=== PATIENT | male | born 1985 | race Caucasian/White ===

== ENCOUNTER 2017-02-10 07:34 | Emergency (ER) | payer OTHER ==
[~2017-02-10] VITALS: Ht 180.3 cm; Wt 97.7 kg
[2017-02-10] MEDS ORDERED: CELE10TA PO (07:40)
[2017-02-10] MEDS ORDERED: PERCOCET 5MG/325MG TAB PO ONE (08:00)
[2017-02-10] MEDS ORDERED: KETOROLAC 60 MG/2 ML VIAL (J1885) IM ONE (09:00)
[2017-02-10] MEDS ORDERED: IBUP-1022 PO (09:38)
[2017-02-10] MEDS ORDERED: PERC5TAB12 PO (09:39)
[2017-02-10 10:01] VITALS: BP 144/86
--- NOTE | 2017-02-22 10:13 | REP ---
RIGHT SHOULDER, THREE VIEWS: Three views left shoulder performed. There is no evidence of acute fracture. There is elevation of the distal end of the clavicle with respect to the acromion. IMPRESSION: AC joint separation with mild elevation of the distal end of the clavicle with respect to the acromion. Signed by Akbar Kincaid MD 02/22/2017 04:49 P
== END 2017-02-10 10:03 | disposition home or self-care (01) ==
LOC: M ED 07:34
DX: S43.101A Unspecified dislocation of right acromioclavicular joint, initial encounter (principal); S06.0X0A Concussion without loss of consciousness, initial encounter; F41.9 Anxiety disorder, unspecified; W01.0XXA Fall on same level from slipping, tripping and stumbling without subsequent striking against object, initial encounter; Y92.9 Unspecified place or not applicable; Y99.9 Unspecified external cause status; Y93.9 Activity, unspecified
CPT/HCPCS: 73030; 96372; 99283; J1885

== ENCOUNTER 2023-02-08 14:32 | Emergency (ER) | payer OTHER ==
[~2023-02-08] VITALS: Ht 182.9 cm; Wt 97.9 kg
[~2023-02-08 14:32] MED LIST: CELE10TA PO; IBUP-1022 PO; PERC5TAB12 PO
[2023-02-08] MEDS ORDERED: CEPH500C (14:50)
[2023-02-08] MEDS ORDERED: BUPR150T12 (14:50)
[2023-02-08 15:39] LABS: BASO % 0.3 % (0.0-1.0); EOS # 0.1 10^3/uL (0.0-0.5); EOS % 1.2 % (0.0-3.0); HEMATOCRIT 46.6 % (42.0-52.0); HEMOGLOBIN 15.5 g/dl (13.5-17.5); LYMPH # 1.7 10^3/uL (1.5-5.0); LYMPH % 16.6 % (24.0-44.0); MEAN CORPUSCULAR HEMOGLOBIN 28.8 pg (27.0-33.0); MEAN CORPUSCULAR HGB CONC 33.3 g/dl (32.0-36.5); MEAN CORPUSCULAR VOLUME 86.6 fl (80.0-96.0); MONO # 0.6 10^3/uL (0.0-0.8); MONO % 5.9 % (2.0-8.0); NEUTROPHILS # 7.8 10^3/uL (1.5-8.5); NEUTROPHILS % 75.7 % (36.0-66.0); PLATELET COUNT, AUTOMATED 289 10^3/uL (150-450); RED BLOOD COUNT 5.38 10^6/uL (4.30-6.10); WHITE BLOOD COUNT 10.3 10^3/uL (4.0-10.0)
[2023-02-08 15:52] LABS: ERYTHROCYTE SEDIMENTATION RATE 12 mm/hr (0-15)
[2023-02-08 16:07] LABS: ALKALINE PHOSPHATASE 122 U/L (46-116); ALT/SGPT 68 U/L (7.0-40); AST/SGOT 37 U/L (<34); BILIRUBIN,DIRECT 0.3 MG/DL (<0.4); BILIRUBIN,TOTAL 0.8 MG/DL (0.3-1.2); BLOOD UREA NITROGEN 10 MG/DL (9-23); CALCIUM LEVEL 9.6 MG/DL (8.5-10.1); CARBON DIOXIDE LEVEL 31 MMOL/L (20-31); CHLORIDE LEVEL 102 MMOL/L (98-107); CREATININE FOR GFR 0.99 MG/DL (0.70-1.30); GLOMERULAR FILTRATION RATE > 60.0 (>60); GLUCOSE, FASTING 97 MG/DL (60-100); POTASSIUM SERUM 4.5 MMOL/L (3.5-5.1); SODIUM LEVEL 140 MMOL/L (136-145); TOTAL PROTEIN 6.9 G/DL (5.7-8.2)
[2023-02-08] MEDS ORDERED: DOXYCYCLINE HYCLATE 100MG TABLET PO ONE (18:40)
[2023-02-08] MEDS ORDERED: DOXY-443 PO (18:42)
[2023-02-08 18:57] VITALS: BP 136/88; TEMP 97.8; O2SAT 99
== END 2023-02-08 18:57 | disposition home or self-care (01) ==
LOC: M ED 14:32
DX: L03.115 Cellulitis of right lower limb (principal); F41.9 Anxiety disorder, unspecified; Z79.899 Other long term (current) drug therapy

== ENCOUNTER → 2025-03-13 | Outpatient (CLI) | payer OTHER ==
[~2025-03-13] MED LIST changes: +BUPR150T12; +CEPH500C; +DOXY-441 PO; -IBUP-1022 PO; +IBUP600T42 PO
== END ==
LOC: M RAD 07:22
PROVIDERS: ATTEND Physician Assistant
DX: J32.9 Chronic sinusitis, unspecified (principal)

== ENCOUNTER 2025-06-03 10:20 | Day surgery (SDC) | payer OTHER ==
[~2025-06-03] VITALS: Ht 182.9 cm; Wt 103.0 kg
[~2025-06-03 10:20] MED LIST changes: -BUPR150T12; +BUPR150T12 PO; +HYDR-3363 PO
[2025-06-03] MEDS ORDERED: LIDOCAINE 2% 100 MG/5 ML SDV (FOR ANES.) As Ordered ONE (11:35)
[2025-06-03] MEDS ORDERED: ROCURONIUM BROMIDE 50MG/5ML VIAL As Ordered ONE (11:35)
[2025-06-03] MEDS ORDERED: dexAMETHasone 4 MG/ML 1 ML VIAL As Ordered ONE (11:36)
[2025-06-03] MEDS ORDERED: ONDANSETRON 4MG/2ML VIAL As Ordered ONE (11:36)
[2025-06-03] MEDS ORDERED: MIDAZOLAM INJ 2 MG/2 ML VIAL As Ordered ONE (11:36)
[2025-06-03] MEDS ORDERED: SCOPOLAMINE 1MG TRANSDERMAL PATCH TOP ONE (11:45)
[2025-06-03] MEDS: LR 1,000 ML IV SCH (11:48)
[2025-06-03] MEDS ORDERED: ACETAMINOPHEN 1000MG/100ML IV BAG As Ordered ONE (13:40)
[2025-06-03] MEDS: COCAINE 4% 4 ML NASAL SOLUTION BTL As Ordered ONE (13:50)
[2025-06-03] MEDS ORDERED: SUGAMMADEX SODIUM 500 MG/5 ML VIAL As Ordered ONE (14:04)
[2025-06-03] MEDS: OXYMETAZOLINE 0.05% NASAL SPRAY As Ordered ONE (14:16)
[2025-06-03] MEDS: METHYLENE BLUE 0.5% (5 MG/ML) 10 ML AMP As Ordered ONE (14:17)
[2025-06-03] MEDS: LIDOCAINE W/EPINEPHrine 1% 20 ML VIAL As Ordered ONE (14:30)
[2025-06-03] MEDS ORDERED: HYDROMORPHONE HCL 0.5 MG/0.5 ML SYRINGE IV PRN (14:50)
[2025-06-03] MEDS ORDERED: LR 1,000 ML IV SCH ×2 (14:50→16:25)
[2025-06-03] MEDS: ONDANSETRON 4MG/2ML VIAL IV PRN (16:24)
[2025-06-03 16:48] VITALS: BP 128/66; TEMP 97.2; O2SAT 99
== END 2025-06-03 17:07 | disposition home or self-care (01) ==
LOC: M SDC 10:20
PROVIDERS: ATTEND Otolaryngology
DX: J32.4 Chronic pansinusitis (principal); G47.30 Sleep apnea, unspecified; Z79.899 Other long term (current) drug therapy; F41.9 Anxiety disorder, unspecified
CPT/HCPCS: 31253; 31267; 31287; 61782; 70486; 88305; 93005; A6024; C9143; J0131; J1100; J2250; J2405; J3010; J3490